=== PATIENT | female | born 1960 | race Caucasian/White ===

== ENCOUNTER 2021-08-29 08:06 | Emergency (ER) | payer OTHER, SELFPAY ==
[2021-08-29 08:24] VITALS: BP 175/90; PULSE 62; RESP 16; TEMP 36.6; O2SAT 98
--- NOTE | 2021-08-29 08:45 | DI.CT_ITS ---
Exam(s) CT HEAD WO EXAM: CT HEAD WO CLINICAL HISTORY: atypical migraine. TECHNIQUE: Imaging Protocol: Axial computed tomography images with coronal and sagittal reformatted images were created and reviewed COMPARISON: No exams were available for comparison FINDINGS: Ventricles and Extra axial spaces: Normal in size and morphology for the patient's age. Hemorrhage: None. Cerebral parenchyma: Normal. Midline shift: None. Brainstem/Cerebellum: Normal. Calvarium: Normal. Visualized Paranasal sinuses/Mastoids: Clear. Soft Tissues: Unremarkable. IMPRESSION: No acute intracranial process. RADIATION DOSE DELIVERED: 659.39mGy.cm Total DLP DATA REPOSITORY: All CT scans at this facility are submitted to the National Radiology Data Registry (NRDR) Dose Index Registry (DIR) with the [employer] ([employer]). RADIATION OPTIMIZATION: All CT scans at this facility use at least one of these dose optimization te chniques: automated exposure control; mA and/or kV adjustment per patient size (includes targeted exa ms where dose is matched to clinical indication); or iterative reconstruction.
[2021-08-29 09:16] LABS: Abs Immature Grans 0.01 10^3/uL (0.0-0.06); Absolute Basophil Count 0.07 10^3/uL (0.0-0.2); Absolute Eosinophil Count 0.24 10^3/uL (0.0-0.7); Absolute Lymphocyte Count 1.91 10^3/uL (1.2-3.4); Absolute Monocyte Count 0.63 10^3/uL (0.1-0.8); Absolute Neutrophil Count 4.82 10^3/uL (1.2-6.7); Basophils % 0.9; Eosinophils % 3.1; HCT 44.1 % (36.0-46.0); HGB 14.4 g/dL (11.2-15.7); Immature Grans % 0.1; Lymphocytes % 24.9; MCH 29.8 pg (27.0-33.0); MCHC 32.7 % (32.0-36.0); MCV 91 fL (80-95); MPV 11.9 fL (8.0-11.0); Monocytes % 8.2; Neutrophils % 62.8; Platelet Count 194 10^3/uL (130-400); RBC 4.83 10^6/uL (3.93-5.22); RDW 13.6 % (11.7-14.6); RDW-SD 46.2 fL; WBC 7.68 10^3/uL (4.4-10.8)
[2021-08-29 09:31] LABS: ALT 22 U/L (14-59); AST 22 U/L (15-37); Albumin 4.7 g/dL (3.4-5.0); Alkaline Phosphatase 87 U/L (46-116); Anion Gap 7.7 mmol/L (3-11); BUN 10 mg/dL (7-18); Bilirubin, Total 0.6 mg/dL (0.2-1.0); CO2 30.3 mmol/L (21.0-32.0); CREATININE 0.7 mg/dL (0.55-1.02); Calcium 9.3 mg/dL (8.5-10.1); Chloride 104 mmol/L (98-107); Glucose 91 mg/dL (74-106); Potassium 4.3 mmol/L (3.5-5.1); Sodium 142 mmol/L (136-145); Total Protein 8.3 g/dL (6.4-8.2)
--- NOTE | 2021-08-29 10:22 | DI.VRAD_ITS ---
PROCEDURE INFORMATION: Exam: CT Head Without Contrast Exam date and time: 08/29/2021 9:52 AM Age: 61 years old Clinical indication: Pain; Other: Atypical migraine TECHNIQUE: Imaging protocol: Computed tomography of the head without contrast. COMPARISON: No relevant prior studies available. FINDINGS: Brain: Normal. No hemorrhage. Unremarkable white matter. No mass effect. Cerebral ventricles: No ventriculomegaly. Paranasal sinuses: Visualized sinuses are unremarkable. No fluid levels. Mastoid air cells: Visualized mastoid air cells are well aerated. Bones/joints: Unremarkable. No acute fracture. Soft tissues: Unremarkable. IMPRESSION: No CT evidence for acute intracranial abnormality. Dictated and Authenticated by: Fabien Rivera MD. Ordering:JEANNIE Niño MD
--- NOTE | 2021-08-29 13:56 | ED.GENADUL_ITS ---
Discharge Plan Disposition Patient Disposition: HOME Condition: Stable Discharge Details Clinical Impression: Headache, Acute neck pain Primary Care Provider: Flor Shepard ED Provider: Renay Mendoza Home Meds and New Rx's Prescriptions: New metaxalone 800 mg tablet 800 mg PO TID PRNQty: 14 0RF Continued alprazolam [Xanax] 0.25 mg Tablet 0.25 mg PO BID PRN cholecalciferol (vitamin D3) [Vitamin D3] 50 mcg (2,000 unit) tablet 2,000 unit PO DAILY Label Comments: Take 1 tablet by mouth once a day Discharge Instructions Instructions: General Headache (ED), Neck Pain (ED) Additional Instructions: Please follow-up with your primary care physician, and listing new primary care physician you may call to attempt to schedule an appointment You may also follow-up with our neurologist with persistent headache, and listing information below Take Skelaxin as needed for musculoskeletal pain Continue with your ibuprofen and Tylenol as tolerated Return earlier should he have new or worsening complaints Referrals: Kiarra Lemus MD [ [facility]] - Glendy Christine MD [ [facility]IAN] - Discharge Data Discharge Date/Time-TO BE ENTERED AT DEPARTURE: 08/29/21 10:55 Medical Decision Making Patient appears well, her neuro exam is benign Patient is afebrile and nontoxic CT scan was ordered secondary to change in her presenting migraine and she was referred to neurology for setting Radiology interpretation of CT scan was reviewed and negative per radiology rotation Diagnostic labs are reassuring without significant acute abnormality Symptom-free at time of discharge home Given muscle relaxant should she need it at home Referral back to primary care physician and referral to neurology Discharged home in stable condition neurologically intact Medical Records Medical records reviewed: Yes I reviewed the patient's medical records. Lab Data Lab results reviewed: Yes I reviewed the patient's lab results. HPI General Date/Time Provider Initiated Documentation: 08/29/21 08:22 . HPI Narrative: This 61-year-old female presents with headache radiating down the neck. This is predominantly in the left side. She states is been going on for approximately a week after a single first-time. She states that she was concerned this morning because she had a large aura, large with typical for her. She states that encompassed her entire vision which is unusual. 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 She denies any dizziness or weakness. She denies any strength or sensation change to her extremities. She denies any chest pain or shortness of breath. She denies any weakness speech, or current vision change. She hit the event lasted approximately 10 minutes. Related Data Home Medications Medication Instructions Recorded Confirmed alprazolam 0.25 mg tablet (Xanax) 0.25 mg PO BID PRN 08/29/21 08/29/21 cholecalciferol (vitamin D3) 50 2,000 unit PO DAILY 08/29/21 08/29/21 mcg (2,000 unit) tablet (Vitamin D3) metaxalone 800 mg tablet 800 mg PO TID PRN #14 tabs 08/29/21 Previous Rx's Medication Instructions Recorded metaxalone 800 mg tablet 800 mg PO TID PRN #14 tabs 08/29/21 Allergies Allergy/AdvReac Type Severity Reaction Status Date / Time No Known Allergies Allergy Unverified 08/29/21 08:32 General Stated Complaint: Headache BARRY: 3 Review of Systems All systems reviewed & are unremarkable except as noted in HPI and below PFSH All Active Problems (Updated 08/29/21 @ 10:32 by JACOB Parsons) Headache (Acute) Acute neck pain (Acute) Social History Smoking/Tobacco Use Status: Current every day Tobacco Type: cigarettes Smoking risk assessment performed?: Yes Alcohol Intake: current Alcohol Intake frequency: 3 or more drinks per day Substance use type: marijuana Do you feel safe at home: Yes Do you feel safe in your relationship?: Yes Exam Const General: cooperative, comfortable and no acute distress Eyes Pupils: PERRL EOM: EOM intact bilaterally Resp Effort & Inspection: normal respiratory effort Cardio Rate: regular rate Rhythm: regular rhythm Other: Distal pulses intact GI Inspection: normal to inspection Skin General skin exam: no rashes or lesions noted Neuro General: patient alert and patient oriented x3 Other: Strength and sensation intact distally GCS 15, negative [id number], negative pronator drift Ambulatory with steady gait Extrem General: normal to inspection Shoulder/upper arm images: 1. Reproducible tenderness Psych Appearance: grossly normal Course Vital Signs Vital signs: Vital Signs Temperature 36.6 C 08/29/21 08:24 Pulse 62 08/29/21 08:24 Respiratory Rate 16 08/29/21 08:24 Blood Pressure 175/90 H 08/29/21 08:24 Pulse Oximetry 98 08/29/21 08:24 Temperature 36.6 C 08/29/21 08:24 Pulse 62 08/29/21 08:24 Respiratory Rate 16 08/29/21 08:24 Respiratory Effort 08/29/21 08:34 Blood Pressure 175/90 H 08/29/21 08:24 Pulse Oximetry 98 08/29/21 08:24 Pain Level 0 08/29/21 08:24 Lab/Test Results Lab/Test Results: Laboratory Tests Range/Units 08/29/21 08/29/21 09:00 09:00 WBC (4.4-10.8) 10^3/uL 7.68 RBC (3.93-5.22) 10^6/uL 4.83 Hgb (11.2-15.7) g/dL 14.4 Hct (36.0-46.0) % 44.1 MCV (80-95) fL 91 MCH (27.0-33.0) pg 29.8 MCHC (32.0-36.0) % 32.7 RDW (11.7-14.6) % 13.6 Plt Count (130-400) 10^3/uL 194 MPV (8.0-11.0) fL 11.9 H Immature Gran % 0.1 Neutrophils % 62.8 Lymphocytes % 24.9 Monocytes % 8.2 Eosinophils % 3.1 Basophils % 0.9 Nucleated RBC % (0.0-0.3) % 0.0 Absolute Neutrophils (1.2-6.7) 10^3/uL 4.82 Absolute Lymphocytes (1.2-3.4) 10^3/uL 1.91 Absolute Monocytes (0.1-0.8) 10^3/uL 0.63 Absolute Eosinophils (0.0-0.7) 10^3/uL 0.24 Absolute Basophils (0.0-0.2) 10^3/uL 0.07 Sodium (136-145) mmol/L 142 Potassium (3.5-5.1) mmol/L 4.3 Chloride (98-107) mmol/L 104 Carbon Dioxide (21.0-32.0) mmol/L 30.3 Anion Gap (3-11) mmol/L 7.7 BUN (7-18) mg/dL 10 Creatinine (0.55-1.02) mg/dL 0.7 Estimated GFR/1.73 m2 (mL/min/1.73m2) >= 60.00 Glucose (74-106) mg/dL 91 Calcium (8.5-10.1) mg/dL 9.3 Total Bilirubin (0.2-1.0) mg/dL 0.6 AST (15-37) U/L 22 ALT (14-59) U/L 22 Alkaline Phosphatase (46-116) U/L 87 Total Protein (6.4-8.2) g/dL 8.3 H Albumin (3.4-5.0) g/dL 4.7
== END 2021-08-29 10:55 | disposition home or self-care (01) ==
PROVIDERS: Emergency Provider Physician Assistant; PCP Family Medicine
DX: R51.9 Headache, unspecified (principal); M54.2 Cervicalgia
CPT/HCPCS: 36415; 80053; 99284; 70450; 85025; 99283